=== PATIENT | female | born 1960 | race Caucasian/White ===

== ENCOUNTER → 2016-08-10 | Outpatient (CLI) | payer OTHER ==
--- NOTE | 2016-08-10 13:59 | CT ---
Contrast Enhanced CT Scan of the Chest Clinical History: 55-year-old female with a history of chest pain and dyspnea. The patient was a prio r smoker, and quit 20 years ago. Chest radiography in June revealed some biapical pleural-parench ymal fibrosis. Technique: Following the uneventful intravenous administration of 80 mL of Isovue-30, standard helica l CT imaging of the chest was obtained utilizing 5.00 mm collimated slices through the thorax, and re formatted at 1.25 mm overlapping increments. The FOV is 38 cm. Multiplanar reconstructions are review ed. Dose reduction techniques were utilized. Comparison Study: Chest radiography, dated 06/29/2016. Findings: Lung Windows: Again noted is mild biapical pleural-parenchymal fibrosis. Otherwise, the lungs are usman ar, with no focal infiltrate, pulmonary nodule, atelectasis, or pleural effusion. The airway is clear , with no significant bronchial wall thickening. There is no centrilobular emphysema or peripheral in terstitial lung disease. Mediastinal Windows: The cardiac chambers appear normal. The thoracic aortic contour is normal, with no aneurysm or dissection. Imaging of the central pulmonary segments was not obtained at adequate con trast opacification. The pulmonary segments are normal in size. There is no pericardial or pleural ef fusion. There are no pathologically-enlarged lymph nodes present within the axilla, mediastinum, or t he pulmonary tito. The visualized portions of the thyroid gland are normal. Bilateral augmentation ma mmoplasties are noted. The imaged portion of the upper abdomen is notable for hepatic steatosis, and a catwalk appearance to the left hepatic lobe, terminating near the spleen. The spleen is normal, giv en the arterial phase of contrast enhancement. There are postcholecystectomy clips present. Osseous Windows: The bones are notable for a pectus excavatum configuration. The thoracic vertebral b joleen heights and posterior alignments are maintained. Impression: 1. Mild biapical pleural-parenchymal fibrosis. 2. Pectus excavatum deformity. 3. Status post bilateral augmentation mammoplasties. 4. Status post cholecystectomy. 5. Hepatic steatosis.
== END ==
LOC: CIMAGING 09:17
PROVIDERS: ATTEND Family Medicine
DX: J94.1 Fibrothorax (principal); Q67.6 Pectus excavatum
CPT/HCPCS: 71260-PO

== ENCOUNTER → 2017-01-18 | Outpatient (CLI) | payer OTHER ==
[2017-01-18 19:38] LABS: HEMOGLOBIN A1C 5.7 % (4.0-6.0)
== END ==
LOC: CIMAGING 14:50
PROVIDERS: ATTEND Family Medicine
DX: M71.22 Synovial cyst of popliteal space [Baker], left knee (principal)
CPT/HCPCS: 76882-PO